=== PATIENT | male | born 2000 | race Caucasian/White ===

== ENCOUNTER → 2019-07-22 | Outpatient (CLI) | payer SELFPAY ==
[2019-07-22 14:11] LABS: A TYPE INFLUENZA AG NEGATIVE (NEGATIVE)
[2019-07-22 14:12] LABS: B INFLUENZA AG NEGATIVE (NEGATIVE)
== END ==
LOC: RDC 13:04
PROVIDERS: ATTEND Nurse Practitioner Family
DX: Z20.828 Contact with and (suspected) exposure to other viral communicable diseases (principal)
CPT/HCPCS: 36415; 87070; 87635; 87804; 87880